=== PATIENT | female | born 2000 | race Hispanic/Latino ===

== ENCOUNTER 2019-08-01 13:33 | Outpatient (CLI) | payer BC ==
--- NOTE | 2019-08-01 14:05 | RAD ---
Exam: Thoracic spine 2 views: HISTORY: History of fracture spinous process of thoracic vertebra COMPARISON: None FINDINGS: No evidence for compression fracture or malalignment. The spinous processes are obscured on the later al view because of rotation. No evidence for significant malalignment. IMPRESSION: No fracture or dislocation demonstrated. The spinous processes are obscured on the lateral view because of rotation. No prior imaging.
== END 2019-08-01 13:34 | disposition home or self-care (01) ==
LOC: TBSIIMAG 13:33
PROVIDERS: ATTEND Neurological Surgery
DX: S22.009A Unspecified fracture of unspecified thoracic vertebra, initial encounter for closed fracture (principal)
CPT/HCPCS: 72072

== ENCOUNTER 2019-08-28 13:39 | Outpatient (CLI) | payer BC ==
--- NOTE | 2019-08-28 15:52 | RAD ---
THORACIC SPINE 3 VIEWS: Date: 08/28/19 COMPARISON: 08/01/19. HISTORY: Fracture of spinous process of thoracic vertebral body. FINDINGS: The vertebral bodies maintain normal height. Once again, it is difficult to definitely appreciate a s pinous process fracture on this examination due to overlap with ribs. IMPRESSION: Stable overall exam. POS: JAY
== END 2019-08-28 13:40 | disposition home or self-care (01) ==
LOC: TBSIIMAG 13:39
PROVIDERS: ATTEND Neurological Surgery
DX: S22.070D Wedge compression fracture of T9-T10 vertebra, subsequent encounter for fracture with routine healing (principal)
CPT/HCPCS: 72072